=== PATIENT | female | born 1980 | race Caucasian/White ===

== ENCOUNTER → 2019-09-12 | Outpatient (CLI) | payer OTHER ==
[~2019-09-12] MED LIST: ACID CONTROL75 MG PO; CARISOPRODOL 3350 MG PO; CYMBALTA60 MG; CYMBALTA60 MG PO; NORCO 5-325 TA1 EACH PO; PHENERGAN 25 MG25 MG PO; ZOFRAN 4 MG ORAL4 M1 DIS
[2019-09-12 09:05] LABS: ABSOLUTE NEUTROPHILS 2.2 thou/uL (1.4-8.2); BASOPHILS 0.7 % (0.0-2.0); EOSINOPHILS 1.5 % (0.0-3.0); HEMATOCRIT 38.5 % (37.0-47.0); HEMOGLOBIN 13.3 gm/dL (12.0-15.0); LYMPHOCYTES 32.9 % (24.0-44.0); MCH 34.5 pg (26.0-34.0); MCHC 34.5 g/dL (28.0-37.0); MCV 100.2 fL (80.0-100.0); MONOCYTES 8.1 % (1.0-8.0); PLATELET COUNT 280 thou/uL (150-400); POLYS 56.8 % (36.0-66.0); RBC 3.84 mil/uL (4.20-5.00); RDW 13.7 % (10.5-14.5); WBC 3.8 thou/uL (4.0-11.0)
[2019-09-12 09:28] LABS: ALBUMIN 3.8 g/dL (3.4-5.0); ANION GAP 8 mmol/L (7-16); BUN 11 mg/dL (7-18); CALCIUM 8.5 mg/dL (8.5-10.1); CHLORIDE 100 mmol/L (98-107); CHOLESTEROL 170 mg/dL (<200); CO2 27 mmol/L (21-32); CREATININE 0.7 mg/dL (0.6-1.0); GLUCOSE 84 mg/dL (74-106); HDL CHOLESTEROL 62 mg/dL (>40); LDL CHOLESTEROL 94 mg/dL (<100); POTASSIUM 3.6 mmol/L (3.5-5.1); SGOT 18 U/L (15-37); SGPT 37 U/L (30-65); SODIUM 135 mmol/L (136-145); TC:HDL 2.7 Ratio (Not establshd); TOTAL BILIRUBIN 0.7 mg/dL (0.2-1.0); TOTAL PROTEIN 6.9 g/dL (6.4-8.2); TRIGLYCERIDE 74 mg/dL (<150); VLDL 15 mg/dL (<40)
== END ==
LOC: LAB 08:45
PROVIDERS: ATTEND Family Medicine
DX: E55.9 Vitamin D deficiency, unspecified (principal); E78.5 Hyperlipidemia, unspecified; R53.83 Other fatigue